=== PATIENT | male | born 1950 | race Caucasian/White ===

== ENCOUNTER 2021-01-04 14:27 | Inpatient (IN) ==
[2021-01-04] MEDS ORDERED: Melatonin 3 MG TABLET PO PRN (20:35)
[2021-01-04] MEDS ORDERED: Ondansetron 4 MG/2 ML VIAL IVP PRN (20:35)
[2021-01-04] MEDS ORDERED: Acetaminophen 325 MG TABLET PO PRN (20:35)
[2021-01-04] MEDS ORDERED: Naloxone 0.4 MG/ML INJ IVP PRN (20:35)
[2021-01-04] MEDS ORDERED: Perflutren Lipid Microsphere 1.3 ML in 0.9 % Sodium Chloride 8.7 ML IVP PRN (22:22)
[2021-01-04] MEDS ORDERED: Dextrose Gel 15 GM/37.5 ML TUBE PO PRN ×2 (22:26)
[2021-01-04] MEDS ORDERED: *HR* Dextrose 50 % in Water (Vial) 50 ML VIAL IVP PRN (22:26)
[2021-01-04] MEDS ORDERED: D5% in Water 1,000 ML IVC PRN (22:26)
[2021-01-05 02:42] LABS: Basophils # 0.1 K/mcL (0.0-0.2); Basophils % 1.6 %; Eosinophils # 0.9 K/mcL (0.0-0.6); Eosinophils % 10.4 %; Hematocrit 26.5 % (37.5-50.1); Hemoglobin 8.1 g/dL (12.9-16.9); Immature Granulocytes % 0.1 % (0-4); Lymphocytes # 1.3 K/mcL (0.6-4.6); Lymphocytes % 15.9 %; Mean Corpuscular HGB Conc 30.6 g/dL (31.6-35.5); Mean Corpuscular Hemoglobin 25.2 pg (28.0-33.3); Mean Corpuscular Volume 82.6 fL (83.0-100.0); Mean Platelet Volume 10.6 fL (9.4-12.4); Monocytes # 0.6 K/mcL (0.0-1.3); Neutrophils # 5.4 K/mcL (1.6-8.9); Platelet Count 187 K/mcL (140-400); Red Blood Count 3.21 M/mcL (4.19-5.50); Red Cell Distribution Width 19.4 % (11.5-14.5); White Blood Count 8.2 K/mcL (4.3-11.1)
[2021-01-05 02:52] LABS: BUN/Creatinine Ratio 12 (6-26); Blood Urea Nitrogen 16 mg/dL (8-23); Calcium 8.5 mg/dL (8.6-10.3); Carbon Dioxide 27 mEq/L (23-29); Chloride 105 mEq/L (98-107); Glucose 96 mg/dL (70-105); Osmolality,Calculated 291 (280-300); Phosphorous 4.1 mg/dL (2.7-4.5); Potassium 4.1 mEq/L (3.5-5.1); Sodium 140 mEq/L (136-145); eGFR For African Americans > 60 (> 60); eGFR For Non-African Americans 51 (> 60)
[2021-01-05 08:21] LABS: Thyroid Stimulating Hormone 1.999 mcIU/mL (0.340-5.600)
[2021-01-05] MEDS: Insulin LISPRO 300 UNITS/3 ML VIAL SUBQ SCH ×3 (10:07→17:25)
[2021-01-05] MEDS: NIFEdipine XL (24 HR) 60 MG TAB.ER.24 PO SCH (11:36)
[2021-01-05] MEDS ORDERED: carvediloL 6.25 MG TABLET PO SCH (17:00)
[2021-01-05] MEDS: Apixaban 5 MG TABLET PO SCH (20:19)
[2021-01-06 03:35] LABS: Hematocrit 29.5 % (37.5-50.1); Hemoglobin 8.9 g/dL (12.9-16.9); Mean Corpuscular HGB Conc 30.2 g/dL (31.6-35.5); Mean Corpuscular Hemoglobin 24.9 pg (28.0-33.3); Mean Corpuscular Volume 82.6 fL (83.0-100.0); Mean Platelet Volume 9.9 fL (9.4-12.4); Platelet Count 220 K/mcL (140-400); Red Blood Count 3.57 M/mcL (4.19-5.50); Red Cell Distribution Width 19.3 % (11.5-14.5); White Blood Count 8.6 K/mcL (4.3-11.1)
[2021-01-06 03:47] LABS: Alanine Aminotransferase 8 Units/L (7-52); Albumin 3.3 g/dL (3.5-5.7); Albumin/Globulin Ratio 1.2 (1.1-2.2); Alkaline Phosphatase 56 Units/L (34-104); Aspartate Amino Transferase 9 Units/L (13-39); BUN/Creatinine Ratio 10 (6-26); Bilirubin,Total 0.6 mg/dL (0.3-1.0); Blood Urea Nitrogen 12 mg/dL (8-23); Calcium 8.8 mg/dL (8.6-10.3); Carbon Dioxide 28 mEq/L (23-29); Chloride 104 mEq/L (98-107); Globulin 2.8 g/dL (2.4-3.5); Glucose 109 mg/dL (70-105); Osmolality,Calculated 290 (280-300); Potassium 3.6 mEq/L (3.5-5.1); Sodium 140 mEq/L (136-145); Total Protein 6.1 g/dL (6.4-8.9); eGFR For African Americans > 60 (> 60); eGFR For Non-African Americans > 60 (> 60)
[2021-01-06] MEDS: Apixaban 5 MG TABLET PO SCH ×2 (08:20→21:23)
[2021-01-06] MEDS: NIFEdipine XL (24 HR) 60 MG TAB.ER.24 PO SCH (08:21)
[2021-01-06] MEDS: Insulin LISPRO 300 UNITS/3 ML VIAL SUBQ SCH ×3 (08:22→17:35)
[2021-01-06] MEDS ORDERED: Acetaminophen 325 MG TABLET PO PRN (08:47)
[2021-01-06] MEDS ORDERED: Ipratropium/Albuterol Neb 3 ML IH PRN (08:47)
[2021-01-06] MEDS: Magnesium Oxide 400 MG TABLET PO SCH ×2 (10:18→21:24)
[2021-01-06] MEDS: Famotidine 20 MG TABLET PO SCH (10:19)
[2021-01-06] MEDS: Furosemide 40 MG TABLET PO SCH (10:19)
[2021-01-06] MEDS: Cyanocobalamin (B-12) 1,000 MCG TABLET PO SCH (10:20)
[2021-01-06] MEDS: predniSONE 5 MG TABLET PO SCH (10:21)
[2021-01-06] MEDS ORDERED: NIFEdipine Immed Rel 10 MG CAPSULE PO ONE (11:35)
[2021-01-06] MEDS: hydrALAZINE 25 MG TABLET PO SCH ×3 (13:46→21:23)
[2021-01-06] MEDS ORDERED: *HR* Metformin 500 MG TABLET PO SCH (17:00)
[2021-01-06] MEDS: Budesonide/Formoterol 160/4.5 1 PUFF INH IH SCH (20:26)
[2021-01-06] MEDS ORDERED: Melatonin 3 MG TABLET PO SCH (21:00)
[2021-01-07 06:00] LABS: Hematocrit 33.1 % (37.5-50.1); Hemoglobin 9.7 g/dL (12.9-16.9); Mean Corpuscular HGB Conc 29.3 g/dL (31.6-35.5); Mean Corpuscular Hemoglobin 24.2 pg (28.0-33.3); Mean Corpuscular Volume 82.5 fL (83.0-100.0); Mean Platelet Volume 9.4 fL (9.4-12.4); Platelet Count 239 K/mcL (140-400); Red Blood Count 4.01 M/mcL (4.19-5.50); Red Cell Distribution Width 19.7 % (11.5-14.5); White Blood Count 10.2 K/mcL (4.3-11.1)
[2021-01-07 07:36] VITALS: BP 153/68; PULSE 87; TEMP 97.8
[2021-01-07] MEDS: Famotidine 20 MG TABLET PO SCH (08:42)
[2021-01-07] MEDS: hydrALAZINE 25 MG TABLET PO SCH (08:42)
[2021-01-07] MEDS: predniSONE 5 MG TABLET PO SCH (08:42)
[2021-01-07] MEDS: Magnesium Oxide 400 MG TABLET PO SCH (08:42)
[2021-01-07] MEDS: Furosemide 40 MG TABLET PO SCH (08:42)
[2021-01-07] MEDS: Cyanocobalamin (B-12) 1,000 MCG TABLET PO SCH (08:42)
[2021-01-07] MEDS: Apixaban 5 MG TABLET PO SCH (08:43)
[2021-01-07] MEDS: Insulin LISPRO 300 UNITS/3 ML VIAL SUBQ SCH (08:43)
[2021-01-07] MEDS ORDERED: NIFEdipine XL (24 HR) 30 MG TAB.ER.24 PO SCH (09:00)
[2021-01-07] MEDS: Budesonide/Formoterol 160/4.5 1 PUFF INH IH SCH (10:35)
[2021-01-07 10:39] VITALS: O2SAT 95
== END 2021-01-07 11:04 | DRG 309 ==
LOC: 2NNU → 3BNU 01-05 14:42
PROVIDERS: ADMIT Internal Medicine; ATTEND Internal Medicine